=== PATIENT | female | born 1980 | race Caucasian/White ===

== ENCOUNTER → 2016-08-27 | Outpatient (CLI) | payer MEDICAID, OTHER ==
[~2016-08-27] MED LIST: PREN0.01 PO
== END ==
LOC: HPND 09:56
DX: O35.8XX0 Maternal care for other (suspected) fetal abnormality and damage, not applicable or unspecified (principal); Z3A.32 32 weeks gestation of pregnancy
CPT/HCPCS: 76811; 76825; 76827; 93325